=== PATIENT | male | born 1950 | race Caucasian/White ===

== ENCOUNTER 2020-02-15 20:38 | Emergency (ER) | payer OTHER, SELFPAY ==
[2020-02-15 20:39] VITALS: BP 106/58; PULSE 86; RESP 16; TEMP 37.5; O2SAT 97; BMI 24.3
--- NOTE | 2020-02-15 21:08 | DI.RAD.S_ITS ---
PROCEDURE: XR HAND RT MIN 3V INDICATIONS: dog bite eval for FB TECHNIQUE: 3 views of the hand(s) acquired. COMPARISON: None. FINDINGS: Bones: No fractures or dislocations. Carpal bones are normally aligned. No suspicious bony lesions. Soft tissues: No suspicious soft tissue calcifications. IMPRESSION: No acute fracture or radiopaque foreign body. Dictated by: Marco Antonio Mccann M.D. on 02/15/2020 at 21:29 Approved by: Marco Antonio Mccann M.D. on 02/15/2020 at 21:30
--- NOTE | 2020-02-15 21:11 | ED_ITS ---
HPI - General Adult General Chief complaint: Fever Stated complaint: Dog Bite Time Seen by Provider: 02/15/20 20:47 Source: patient Mode of arrival: Ambulatory Limitations: no limitations History of Present Illness HPI narrative: 69-year-old male here for evaluation of fevers secondary to a dog bite that he sustained his right hand. Patient states that approximately 5 days [place] a individual walking and dog on a leash was coming in the opposite direction. The patient states that he put his hand down to let the dog smell it and the dog bit him in the hand. Patient states that he did not know the individual with a dog. He does not know the rabies status of the animal. 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 Does not know when his last tetanus shot was. He came in today because he was having fevers at home. He does state that the swelling in his right hand has actually improved over the past 24 hours. Related Data Previous Rx's Medication Instructions Recorded doxycycline hyclate 100 mg PO BID 7 Days #14 tab 02/15/20 Allergies Allergy/AdvReac Type Severity Reaction Status Date / Time codeine Allergy Intermediate Nausea Verified 02/15/20 20:44 Review of Systems Constitutional Constitutional: Reports fever(s) Musculoskeletal Musculoskeletal: Denies tingling Comments: Right hand pain Integumentary/Breasts Comments: Swelling to right hand, abrasion to the palm of the right hand Neurologic Neurologic: Denies behavioral changes and Denies tingling Psychiatric Psychiatric: Denies behavioral changes Hematologic/Lymphatic Hematologic/Lymphatic: Denies easy bleeding and Denies easy bruising Allergic/Immunologic Allergic/Immunologic: Denies urticaria Patient History Medical History Healthy adult (Acute) Social History Smoking Status: Current some day smoker Smoking Status: Current some day smoker alcohol intake frequency: 0-2 drinks per day Alcohol type: wine Substance Use Type: does not use Exam Initial Vital Signs Initial Vital Signs: Vital Signs Temperature 99.5 F 02/15/20 20:39 Pulse Rate 86 02/15/20 20:39 Respiratory Rate 16 02/15/20 20:39 Blood Pressure 106/58 L 02/15/20 20:39 Pulse Oximetry 97 02/15/20 20:39 Const General: cooperative, healthy appearing, comfortable, well developed and well groomed Limitations: mental status not altered HENMT Head: normal to inspection and normocephalic Resp Effort & Inspection: normal respiratory effort Auscultation: clear to auscultation bilaterally Cardio Rate: regular rate Rhythm: regular rhythm Pulses: radial pulses present on the right Skin Other: Is 1 cm round abrasion to the palmar aspect of the right hand was some crusting over the area. There are no puncture wounds on the dorsum of the hand. Right hand is somewhat red compared to the left. No definite streaking seen up the right arm. Neuro Sensory Exam: no sensory deficits noted Extrem Other: Patient has full range of motion of the right elbow shoulder wrist and joints to the fingers of the hand. Can pronate and supinate without any discomfort. Can make a fist without any discomfort. Psych Appearance: grossly normal and well kempt Course Orders Ordered: ED Orders 02/15/20 21:00 Basic Metabolic Panel Stat Complete Blood Count AUTO DIFF Stat Lactate (Lactic Acid) Stat Procalcitonin Stat 02/15/20 21:08 XR hand RT min 3V Stat 02/15/20 21:30 Blood Culture Stat Discontinued Medications Diphtheria/Tetanus/Acell Pertussis (Adacel) 0.5 ml IM .ONCE ONE Stop: 02/15/20 21:09 Last Admin: 02/15/20 21:30 Dose: 0.5 ml Documented by: SAM Doxycycline Hyclate 100 mg/ (Sodium Chloride) 100 mls @ 100 mls/hr IV NOW ONE Stop: 02/15/20 21:10 Last Infusion: 02/15/20 23:00 Dose: 0 mls/hr Documented by: Admin: 02/15/20 21:58 Dose: 100 mls/hr Documented by: SAM Vital Signs Vital signs: Vital Signs - 8 hr 02/15/20 20:39 02/15/20 23:01 Temperature 99.5 F 98.1 F Pulse Rate 86 84 Respiratory Rate 16 16 Blood Pressure 106/58 L 141/86 H Pulse Oximetry 97 97 Medical Decision Making Lab Data Lab results reviewed: Yes I reviewed the patient's lab results. Result diagrams: 02/15/20 21:00 02/15/20 21:00 Labs: Lab Results 02/15/20 02/15/20 02/15/20 Range/Units 21:00 21:00 21:00 WBC 22.2 H (4.5-11.0) X10^3/uL RBC 4.38 L (4.5-5.9) X10^6/uL Hgb 14.3 (13.5-17.5) g/dL Hct 42.0 (41-53) % MCV 95.9 (80-100) fL MCH 32.8 (26-34) PG MCHC 34.1 (30-36) % RDW 13.1 (11.6-14.8) % Plt Count 197 (150-400) X10^3/uL Neut % (Auto) 91.5 H (50-75) % Lymph % (Auto) 1.9 L (25-40) % Josephine % (Auto) 6.1 (3-14) % Eos % (Auto) 0.0 L (2-4) % Baso % (Auto) 0.5 (0-2) % Neut # (Auto) 95700 H (8432-3170) /uL Lymph # (Auto) 400 L (6824-5627) /uL Josephine # (Auto) 1400 H (0-900) /uL Eos # (Auto) 0 (0-450) /uL Baso # (Auto) 100 (0-100) /uL Sodium 132 L (137-145) mmol/L Potassium 3.3 L (3.4-5.1) mmol/L Chloride 100 (98-107) mmol/L Carbon Dioxide 23 (22-32) mmol/L BUN 16 (9-20) mg/dL Creatinine 1.07 (0.66-1.25) mg/dL Estimated GFR > 60.0 (>60) mL/min BUN/Creatinine Ratio 15.0 (6-22) Glucose 137 H (80-110) mg/dL Lactate (0.7-2.1) mmol/L Calcium 8.8 (8.4-10.2) mg/dL Procalcitonin 5.52 H (<0.5) ng/mL 02/15/20 Range/Units 21:00 WBC (4.5-11.0) X10^3/uL RBC (4.5-5.9) X10^6/uL Hgb (13.5-17.5) g/dL Hct (41-53) % MCV (80-100) fL MCH (26-34) PG MCHC (30-36) % RDW (11.6-14.8) % Plt Count (150-400) X10^3/uL Neut % (Auto) (50-75) % Lymph % (Auto) (25-40) % Josephine % (Auto) (3-14) % Eos % (Auto) (2-4) % Baso % (Auto) (0-2) % Neut # (Auto) (0134-2167) /uL Lymph # (Auto) (6991-0112) /uL Josephine # (Auto) (0-900) /uL Eos # (Auto) (0-450) /uL Baso # (Auto) (0-100) /uL Sodium (137-145) mmol/L Potassium (3.4-5.1) mmol/L Chloride (98-107) mmol/L Carbon Dioxide (22-32) mmol/L BUN (9-20) mg/dL Creatinine (0.66-1.25) mg/dL Estimated GFR (>60) mL/min BUN/Creatinine Ratio (6-22) Glucose (80-110) mg/dL Lactate 1.4 (0.7-2.1) mmol/L Calcium (8.4-10.2) mg/dL Procalcitonin (<0.5) ng/mL Imaging Data Extremity x-ray #1: Radiologist's Impression: [place] [address] XRay Report Signed Patient: Kar Branch WMR#: [id number] : 2Acct:[id number] Age/Sex: 69 / MDate of Service: 02/15/20 Loc: ED Accession Number: [id number] Procedure: XR hand RT min 3V Ordering Provider: Carlin Gilman D.O. PROCEDURE: XR HAND RT MIN 3V INDICATIONS: dog bite eval for FB TECHNIQUE: 3 views of the hand(s) acquired. COMPARISON: None. FINDINGS: Bones: No fractures or dislocations. Carpal bones are normally aligned. No suspicious bony lesions. Soft tissues: No suspicious soft tissue calcifications. IMPRESSION: No acute fracture or radiopaque foreign body. Dictated by: Marco Antonio Mccann M.D. on 02/15/2020 at 21:29 Approved by: Marco Antonio Mccann M.D. on 02/15/2020 at 21:30 MDM Narrative Medical decision making narrative: Patient did have a low-grade fever upon arrival. The x-ray shows no retained foreign bodies. Patient is 5 days out from dog bite to the right hand although he is neurovascularly intact. He can move all joints in his hand without discomfort. He actually states that the swelling has improved over the past 24 hours. The only reason he is here in the emergency department skin see developed fever today. The abrasion on his right hand needs no intervention here in the ER. There is some warmth to the right hand. Secondary to his baseline skin color there is potentially some redness in the right forearm although this is not definitive. There is certainly no redness above his elbow. His tetanus was updated. He was given a dose of antibiotics here in the ER. Had a discussion with him regarding rabies. Given the fact that this was a domesticated animal owned by another individual it is low risk for rabies although I did inform the patient that since the animal was not available for observation by us and we did not know the status of the rabies vaccination there was still a possibility. We did discuss how we would treat this to include the immunoglobulin and also the vaccine with this would entail. After this discussion the patient opted not to have the rabies vaccination. He is alert and oriented x3. GCS 15. In my opinion clinically sober. His is at bedside for these discussions. He understood the risks and benefits of this. I feel that despite his elevated procalcitonin and his leukocytosis that an attempt at oral antibiotics at home is a reasonable course of action. He was given a prescription for the remainder treatment he was given strict return pre cautions given the fact that this was on his hand. He expressed understanding and agreement. Discharge Plan Departure Patient Disposition: Home Clinical Impression: Dog bite of right hand Qualifiers: Encounter type: initial encounter Qualified Code(s): S61.451A - Open bite of right hand, initial encounter Cellulitis Qualifiers: Site of cellulitis: extremity Site of cellulitis of extremity: upper extremity Laterality: right Qualified Code(s): L03.113 - Cellulitis of right upper limb Discharge Date/Time: 02/15/20 23:01 Instructions: DI for Cellulitis -- Adult, DI for Dog Bite Activity Restrictions/Additional Instructions: It is important that you start taking the antibiotics as directed. You can fill this tomorrow 02/16/20. With infections like this things could potentially worsen so if you start to feel worse or you start noticing redness worsening in your hand or you get worsening pain please return to the emergency department for further evaluation. Contact your primary provider for follow-up. Prescriptions: New doxycycline hyclate 100 mg tablet 100 mg PO BID 7 Days Qty: 14 RF: 0
[2020-02-15 21:21] LABS: Add Manual Diff / Slide Review NO; Basophils Absolute Auto 100 /uL (0-100); Basophils Percent Auto 0.5 % (0-2); Eosinophils Absolute Auto 0 /uL (0-450); Hemoglobin 14.3 g/dL (13.5-17.5); Lymphocytes Absolute Auto 400 /uL (1100-4500); Lymphocytes Percent Auto 1.9 % (25-40); Mean Corpuscular HGB Conc 34.1 % (30-36); Mean Corpuscular Hemoglobin 32.8 PG (26-34); Mean Corpuscular Volume 95.9 fL (80-100); Monocytes Absolute Auto 1400 /uL (0-900); Monocytes Percent Auto 6.1 % (3-14); Neutrophils Absolute Auto 20300 /uL (1500-7000); Neutrophils Percent Auto 91.5 % (50-75); Platelet Count 197 X10^3/uL (150-400); Red Blood Cell Count 4.38 X10^6/uL (4.5-5.9); Red Cell Distribution Width 13.1 % (11.6-14.8); White Blood Cell Count 22.2 X10^3/uL (4.5-11.0)
[2020-02-15 21:24] LABS: Lactate (Lactic Acid) 1.4 mmol/L (0.7-2.1)
[2020-02-15 21:29] LABS: Blood Urea Nitrogen 16 mg/dL (9-20); Calcium 8.8 mg/dL (8.4-10.2); Carbon Dioxide 23 mmol/L (22-32); Chloride 100 mmol/L (98-107); Estimated Glomerular Filt Rate > 60.0 mL/min (>60); Glucose 137 mg/dL (80-110); HEMOLYSIS < 15 (0-50); Potassium 3.3 mmol/L (3.4-5.1); Sodium 132 mmol/L (137-145)
[2020-02-15] MEDS: TET,DIPH,PERTUSS(ACELL),VAC/PF 0.5 ML SYRINGE IM (21:30)
[2020-02-15 21:45] LABS: Procalcitonin 5.52 ng/mL (<0.5)
[2020-02-15] MEDS: DOXYCYCLINE 100 MG in SODIUM CHLORIDE 0.9% 100 ML IV (21:58)
--- NOTE | 2020-02-15 22:05 | PC.NURSE ---
Pt was bit by a personal dog from [place] 5 days ago. Dog was on a leash and pt went to pet dog and dog bit his R palm between 2nd and 3rd digit. Site is mildly red and swollen. pt with fever of 100.4. h/o afib and takes asa daily. IV placed and labs drawn including BC x 2. tetanus updated and Doxy infusing.
[2020-02-15 23:01] VITALS: BP 141/86; PULSE 84; RESP 16; TEMP 36.7; O2SAT 97
== END 2020-02-15 23:01 | disposition home or self-care (01) ==
PROVIDERS: Emergency Provider Emergency Medicine
DX: S61.451A Open bite of right hand, initial encounter (principal); L03.113 Cellulitis of right upper limb; R50.9 Fever, unspecified; W54.0XXA Bitten by dog, initial encounter; Z23 Encounter for immunization
CPT/HCPCS: 36415; 73130; 80048; 83605; 84145; 85025; 87040; 90471; 96365; 99284; 90715